=== PATIENT | male | born 1995 | race African-American/Black ===

== ENCOUNTER 2021-09-28 10:52 | Emergency (ER) | payer MEDICAID, OTHER ==
[~2021-09-28] VITALS: Ht 185.4 cm; Wt 145.1 kg
[2021-09-28] MEDS ORDERED: LIDOCAINE 1% HCL (LOCAL ANESTH.) INJ 20ML MDV IJ ONE (11:15)
[2021-09-28] MEDS ORDERED: CEPH500C PO (11:45)
[2021-09-28 11:46] VITALS: BP 134/89
== END 2021-09-28 12:04 | disposition home or self-care (01) ==
LOC: ER 10:52
DX: S61.412A Laceration without foreign body of left hand, initial encounter (principal); W22.8XXA Striking against or struck by other objects, initial encounter; Y93.89 Activity, other specified; Y92.89 Other specified places as the place of occurrence of the external cause; Y99.8 Other external cause status
CPT/HCPCS: 12002; 73130; 99283; J2001